=== PATIENT | female | born 1975 ===

== ENCOUNTER → 2019-04-30 | Outpatient (CLI) | payer OTHER ==
[2019-04-30 16:19] LABS: BACTERIA (WET MOUNT) 4+ BACTERIA SEEN; EPITHELIALS (WET MOUNT) 3+ EPITHELIALS SEEN; T.VAGINALIS (WET MOUNT) NO TRICHOMONAS SEEN; WBCS (WET MOUNT) 1+ WBCS SEEN; YEAST (WET MOUNT) YEAST SEEN
[2019-04-30 17:39] LABS: CHLAM PCR NOT DETECTED (NOT DETECT)
== END ==
LOC: LAB 15:39
PROVIDERS: ATTEND Nurse Practitioner Acute Care
DX: N89.8 Other specified noninflammatory disorders of vagina (principal); R30.0 Dysuria
CPT/HCPCS: 87086; 87088; 87186; 87210; 87491; 87591

== ENCOUNTER → 2019-10-02 | Outpatient (CLI) | payer SELFPAY ==
[2019-10-02 17:50] LABS: BACTERIA (WET MOUNT) 4+ BACTERIA SEEN; T.VAGINALIS (WET MOUNT) NO TRICHOMONAS SEEN; WBCS (WET MOUNT) 1+ WBCS SEEN; YEAST (WET MOUNT) NO YEAST SEEN
[2019-10-02 17:51] LABS: EPITHELIALS (WET MOUNT) 3+ EPITHELIALS SEEN
[2019-10-02 19:16] LABS: CHLAM PCR NOT DETECTED (NOT DETECT)
== END ==
LOC: LAB 17:09
PROVIDERS: ATTEND Nurse Practitioner Acute Care
DX: N89.8 Other specified noninflammatory disorders of vagina (principal); R30.0 Dysuria
CPT/HCPCS: 87210; 87491; 87591